=== PATIENT | male | born 1965 | race Two or more races ===

== ENCOUNTER 2024-06-05 07:42 | Day surgery (SDC) | payer MEDICAID ==
[2024-06-04 14:51] LABS: Urine Bacteria None Seen /hpf (None Seen); Urine WBC None Seen /hpf (0 - 3)
[2024-06-04 15:14] LABS: Basophils # (auto) 0 10 ^3/uL (0-0.2); Basophils % (auto) 0.8 % (0.0-2.0); Eosinophils # (auto) 0.1 10 ^3/uL (0-0.8); Eosinophils % (auto) 1.6 % (0.0-7.0); Hematocrit 42.5 % (41.0-53.0); Hemoglobin 14.2 g/dL (13.5-17.5); Lymphocytes # (auto) 1.8 10 ^3/uL (0.4-5.4); Lymphocytes % (auto) 31.3 % (10.0-50.0); Mean Corpuscular Hemoglobin 31.6 pg (28.0-32.0); Mean Corpuscular Hgb Conc. 33.5 g/dL (32.0-36.0); Mean Corpuscular Volume 94.4 fL (80.0-100.0); Monocytes # (auto) 0.4 10 ^3/uL (0-1.3); Monocytes % (auto) 6.1 % (0.0-12.0); Neutrophils # (auto) 3.5 10 ^3/uL (1.6-8.6); Neutrophils % (auto) 60.2 % (37.0-80.0); Nucleated Red Blood Cells % 0.1 %; Platelet Count (auto) 193 10^3/uL (140-450); Red Cell Distribution Width 13.7 % (11.8-14.3); White Blood Cell 5.7 10^3/uL (4.4-10.8)
[2024-06-04 15:15] LABS: Urine Blood Negative /uL (Negative); Urine Clarity Clear (Clear); Urine Color Light-Yellow (Yellow); Urine Protein, UAD Negative (Negative); Urine Specific Gravity 1.015 (1.001-1.035); Urine Squamous Epithelial Cell None Seen /hpf (<5); Urine Urobilinogen Normal (Negative)
[2024-06-04 15:38] LABS: INR 0.97 (0.9-1.15); Partial Thromboplastin Time 28.1 SEC (24.5-34.5); Prothrombin Time 10.3 sec (9.3-11.8)
[2024-06-04 15:43] LABS: Alanine Aminotransferase 28 U/L (7-40); Albumin 4.1 g/dL (3.2-4.8); Alkaline Phosphatase 69 U/L (46-116); Anion Gap 8 (5-15); Aspartate Aminotransferase 22 U/L (13-40); Blood Urea Nitrogen 15 mg/dL (9-23); Calcium 10.2 mg/dL (8.7-10.4); Carbon Dioxide 27 mmol/L (20-31); Potassium 3.8 mmol/L (3.5-5.1); Sodium 143 mmol/L (136-145)
[2024-06-04 15:44] LABS: Bilirubin, Total 0.8 mg/dL (0.2-1.0); Total Protein 6.5 g/dL (5.7-8.2)
[2024-06-04 15:57] LABS: Chloride 108 mmol/L (98-107); Glucose 123 mg/dL (74-106)
[~2024-06-05] VITALS: Ht 175.3 cm; Wt 83.9 kg
[2024-06-05] MEDS ORDERED: KETAMINE 50mg/ML 1ml syringe IV ONE (07:43)
[2024-06-05] MEDS ORDERED: ceFAZolin 2 GM/D5W100ml 100 ML IV ONE (09:04)
[2024-06-05] MEDS ORDERED: BUPIVACAINE 0.5% P/F INJ 10 ML VIAL ONE (10:33)
[2024-06-05] MEDS ORDERED: CELECOXIB 100 MG CAP ONE (10:39)
[2024-06-05] MEDS ORDERED: GABAPENTIN 300 MG CAP ONE (10:39)
[2024-06-05] MEDS ORDERED: ACETAMINOPHEN IV 100 ML IV ONE (10:39)
[2024-06-05] MEDS: GABAPENTIN 300 MG CAP PO ONE (10:45)
[2024-06-05] MEDS: ACETAMINOPHEN IV 1000 MG/100ML (10MG/ML) IV ONE (10:45)
[2024-06-05] MEDS: CELECOXIB 100 MG CAP PO ONE (10:45)
[2024-06-05] MEDS ORDERED: LIDOCAINE 2% (LOCAL ANESTH.) PF 5ml SDV ONE (10:46)
[2024-06-05] MEDS ORDERED: PROPOFOL 10 MG/ML 20 ML IV ONE (10:46)
[2024-06-05] MEDS ORDERED: GLYCOPYRROLATE 0.2 MG/ML 1ML VIAL ONE (10:46)
[2024-06-05] MEDS ORDERED: ONDANSETRON HCL 4 MG/2 ML VIAL ONE (10:46)
[2024-06-05] MEDS ORDERED: KETOROLAC TROMETH 30 MG/ML 1ML VIAL ONE (10:46)
[2024-06-05] MEDS ORDERED: DexAMETHasone SOD PHOS 10MG/1ML VIAL INJ ONE (10:46)
[2024-06-05] MEDS ORDERED: ePHEDrine SULFATE 50 MG/ML AMP ONE (11:16)
[2024-06-05 11:44] VITALS: PULSE 86; RESP 13; TEMP 98.7; O2SAT 99
--- NOTE | 2024-06-05 11:48 | DVHOP2 ---
Operative Report - 2 Report Details Date: 06/05/24 Preop Diagnosis: 1. Right foot bunion 2. Right foot tailors bunion 3. Right foot metatarsalgia 4. Right foot pain Postop Diagnosis: Right foot bunion right Right foot tailor's bunion Right foot metatarsalgia Surgeon: Narda Mendoza MD Anesthesiologist: See anesthesia Anesthesia: General Implant: 062 K-wire x2 Consent: The patient was informed of the risks and benefits of the procedure. These include but are not limited to complications of anesthesia, postoperative infection, incomplete relief of symptoms, recurrence of symptoms, damage to blood vessels, nerves and tendons, deep venous thrombosis, pulmonary embolism a nd possible need for repeat surgery in the future. Complications: None Estimated Blood Loss: Minimal Fluids: See anesthesia Findings: Consistent with the diagnosis Indications for Surgery: Worsening right foot pain Name of Procedure Performed 1. Right foot MIS bunionectomy (91038) 2. Right foot MIS tailors bunionectomy (09229) 3. Right foot second metatarsal Lina osteotomy (29577) Procedure Details Procedure Details: PRE-PROCEDURE INFORMATION: In the pre-op holding area, the extremity to be operated on was clearly marked and the patient verified correct laterality of the marking. The patient was transferred to the OR table and placed in a supine position. A timeout was performed in which identification of the correct patient, procedure, location, and materials was done. The right foot and leg were prepped and draped in normal sterile fashion. The foot and leg were exsanguinated and the thigh tourniquet was inflated to 250 mmHg. DESCRIPTION OF PROCEDURE: Attention was directed to the right 1st metatarsophalangeal joint where a stab incision was made at the neck of the 1st metatarsal. Care was taken to avoid damage the neurovascular and tendinous structures. Using intraoperative fluoroscopy and an MIS per, an osteotomy was then made at the neck of the 1st metatarsal. The metatarsal head was then shifted into position aligning the sesamoid bones over the fragment. Using a 6 2 K-wire, the wire was then driven down the shaft of the 1st metatarsal to hold the head in place until the osteotomy has healed. Fluoroscopy verified proper placement of hardware as well as correction of previous bunion deformity. Attention was directed to the right lateral fifth metatarsal head where a stab incision was made. This incision was deepened through blunt and sharp dissection. Care was taken to avoid damage to neurovascular structures throughout dissection. The incision was carried to the level of the fifth metatarsal head where on intraoperative fluoroscopy as well as preoperative x- rays, it was noted there was no significantly increased lateral deviation angle of the fifth metatarsal, but the lateral aspect of the fifth metatarsal head appeared to be prominent. This indicated that the patient would benefit from an ostectomy of the metatarsal head without osteotomy. Using an MIS bur, an osteotomy was made across the neck of the metatarsal head. Using a 0.62 K wire, the wire was then placed down the shaft of the 5th metatarsal holding the head in the appropriate position. It was noted on intraoperative fluoroscopy, there was significant reduction of deformity Attention was directed to the right 2nd metatarsal head where a stab incision was made. The incision was deepened through blunt and sharp dissection. Care was taken to avoid damage to neurovascular structures throughout dissection. Incision was carried to the level of the 2nd metatarsal head or on fluoroscopy a s well as preoperative x-rays, it was noted there was significant plantar flexion of the metatarsal head. Using an MIS bur, the an osteotomy was performed across the neck of the metatarsal head. The metatarsal head was then able to float. It was noted off intraoperative fluoroscopy, there was significant reduction deformity. All surgical wounds were irrigated copiously with saline and closed in layers with the aforementioned suture material. A dry sterile dressing was placed on the surgical extremity. The patient was placed in a _ POSTOPERATIVE INFORMATION: The patient tolerated the above noted procedure and anesthesia well and was transferred to the PACU with vital signs stable, and vascular status intact with capillary refill intact to all digits. Postoperative instructions reviewed in detail with the patient with written instructions provided. Patient will return to clinic in approximately 10-14 days for first postoperative visit. Patient has the number of the clinic and was instructed to call prior to that time should any problems, questions, or concerns arise. Condition Good Disposition Home NARDA MENDOZA DPM Jun 05, 2024 11:48
[2024-06-05] MEDS ORDERED: hydrALAZINE HCL 20 MG/ML VL IV PRN (12:00)
[2024-06-05] MEDS ORDERED: ePHEDrine SULFATE 50 MG/ML AMP IV PRN (12:00)
[2024-06-05] MEDS ORDERED: NALOXONE HCL 0.4 MG/ML VIAL IV PRN (12:00)
[2024-06-05] MEDS ORDERED: ONDANSETRON HCL 4 MG/2 ML VIAL IV PRN (12:00)
[2024-06-05] MEDS ORDERED: FLUMAZENIL 0.1 MG/ML INJ 10ML MDV IV PRN (12:00)
[2024-06-05] MEDS ORDERED: fentaNYL CITRATE 100 MCG/2 ML VL IV PRN (12:00)
[2024-06-05] MEDS ORDERED: oxyCODONE HCL 5MG TAB PO PRN (12:00)
[2024-06-05] MEDS ORDERED: HYDROmorphone HCL 2 MG/ML VL/or syr ONE (12:10)
[2024-06-05] MEDS: HYDROmorphone HCL 2 MG/ML VL/or syr IV PRN (12:14)
[2024-06-05 13:15] VITALS: BP 134/73; PULSE 60; RESP 16; O2SAT 99
== END 2024-06-05 13:30 | disposition home or self-care (01) ==
LOC: EDBD → SUR 07:42
PROVIDERS: ATTEND Podiatrist
DX: M21.621 Bunionette of right foot (principal); M21.611 Bunion of right foot; M77.41 Metatarsalgia, right foot; E66.3 Overweight; Z68.27 Body mass index [BMI] 27.0-27.9, adult
CPT/HCPCS: 28296; 28308; 36415; 80053; 81001; 85025; 85610; 85730; C1769; J1100; J1171; J1885; J2003; J2405; J2704; J3490; J0131

== ENCOUNTER 2024-06-15 11:42 | Emergency (ER) | payer MEDICAID ==
[~2024-06-15] VITALS: Ht 170.2 cm; Wt 63.3 kg
--- NOTE | 2024-06-15 12:55 | DVH ---
XY CHEST TWO VIEWS ROUTINE CLINICAL HISTORY: cough COMPARISON: None TECHNIQUE: Frontal and lateral view of the chest was obtained FINDINGS: Lines and Tubes: None Lungs: There is left lower lobe opacity. Pleura: No effusion. No pneumothorax. Cardiomediastinal contours: Unremarkable Bones: No acute osseous abnormality. IMPRESSION: 1. Left lower lobe pneumonia.
[2024-06-15] MEDS: ACETAMINOPHEN 325 MG TAB PO ONE (12:57)
[2024-06-15] MEDS: ONDANSETRON ODT 4 MG TAB PO ONE (12:57)
[2024-06-15 14:46] LABS: Basophils # (auto) 0.1 10 ^3/uL (0-0.2); Basophils % (auto) 1.2 % (0.0-2.0); Eosinophils # (auto) 0.6 10 ^3/uL (0-0.8); Eosinophils % (auto) 9.6 % (0.0-7.0); Hematocrit 42.3 % (41.0-53.0); Hemoglobin 14.1 g/dL (13.5-17.5); Lymphocytes # (auto) 1.4 10 ^3/uL (0.4-5.4); Lymphocytes % (auto) 22.5 % (10.0-50.0); Mean Corpuscular Hemoglobin 31.2 pg (28.0-32.0); Mean Corpuscular Hgb Conc. 33.4 g/dL (32.0-36.0); Mean Corpuscular Volume 93.3 fL (80.0-100.0); Monocytes # (auto) 0.7 10 ^3/uL (0-1.3); Monocytes % (auto) 11.7 % (0.0-12.0); Neutrophils # (auto) 3.5 10 ^3/uL (1.6-8.6); Platelet Count (auto) 350 10^3/uL (140-450); Red Blood Cells 4.53 10^6/uL (4.5-5.90); Red Cell Distribution Width 13.2 % (11.8-14.3); White Blood Cell 6.4 10^3/uL (4.4-10.8)
[2024-06-15 15:26] LABS: Chloride 103 mmol/L (98-107); Sodium 139 mmol/L (136-145)
[2024-06-15 15:27] LABS: Anion Gap 3 (5-15)
[2024-06-15 15:28] LABS: Calcium 10.2 mg/dL (8.7-10.4)
[2024-06-15 15:30] LABS: Carbon Dioxide 33 mmol/L (20-31); Potassium 5.1 mmol/L (3.5-5.1)
[2024-06-15 15:32] LABS: BUN/Creatinine Ratio 17.1 (10.0-20.0); Blood Urea Nitrogen 12 mg/dL (9-23); Glucose 101 mg/dL (74-106)
[2024-06-15] MEDS: AZITHROMYCIN 250 MG TAB PO ONE (15:44)
[2024-06-15] MEDS: CEFEPIME 2GM/50ML NS 50 ML IV ONE (15:52)
--- NOTE | 2024-06-15 15:56 | ED.PDOC ---
History of Present Illness HPI Comments 58M presents with 1 week of nonproductive cough. Patient reports tactile fevers, myalgias, arthralgias. Denies any nausea vomiting or diarrhea. Chief Complaint: Cough Time Seen by MD: 11:59 Reviewed Notes: Nurses Notes, Medications, Allergies Allergies: Coded Allergies: NO KNOWN ALLERGIES (Unverified , 06/04/24) Home Meds No Active Prescriptions or Reported Meds Information Source: Patient Mode of Arrival: Ambulatory Severity: Mild Timing: Days Duration: Since onset Past Medical History PAST MEDICAL HISTORY: Denies Surgical History: Denies all surgeries Family History Family History: Unknown Social History Smoker: Non-Smoker Alcohol: Denies ETOH Use Drugs: Denies Drug Use Lives In: Home Constitutional: denies: chills, diaphoresis, fatigue, fever, malaise, sweats, weakness, others EENTM: denies: blurred vision, double vision, ear bleeding, ear discharge, ear drainage, ear pain, ear ringing, eye pain, eye redness, hearing loss, mouth pain, mouth swelling, nasal discharge, nose bleeding, nose congestion, nose pain, photophobia, tearing, throat pain, throat swelling, voice changes, others Respiratory: reports: cough; denies: hemoptysis, orthopnea, SOB at rest, shortness of breath, SOB with excertion, stridor, wheezing, others Cardiovascular: denies: chest pain, dizzy spells, diaphoresis, Dyspnea on ex ertion, edema, irregular heart beat, left arm pain, lightheadedness, palpitations, PND, syncope, others Gastrointestinal: denies: abdomen distended, abdominal pain, blood streaked bowels, constipated, diarrhea, dysphagia, difficulty swallowing, hematemesis, melena, nausea, poor appetite, poor fluid intake, rectal bleeding, rectal pain, vomiting, others Genitourinary: denies: burning, dysuria, flank pain, frequency, hematuria, incontinence, penile discharge, penile sore, pain, testicle pain, testicle swelling, urgency, others Neurological: denies: dizziness, fainting, headache, left sided numbness, left sided weakness, numbness, paresthesia, pre-existing deficit, right sided numbness, right sided weakness, seizure, speech problems, tingling, tremors, weakness, others Musculoskeletal: denies: back pain, gout, joint pain, joint swelling, muscle pain, muscle stiffness, neck pain, others Integumetry: denies: bruises, change in color, change in hair/nails, dryness, laceration, lesions, lumps, rash, wounds, others Allergic/Immunocompromised: denies: Difficulty Healing, Frequent Infections, Hives, Itching, others Hematologic/Lymphatic: denies: anemia, blood clots, easy bleeding, easy bruising, swollen glands, others Endocrine: denies: excessive hunger, excessive sweating, excessive thirst, excessive urination, flushing, intolerance to cold, intolerance to heat, unexplained weight gain, unexplained weight loss, others Psychiatric: denies: anxiety, bipolar disorder, depression, hopeless, panic disorder, schizophrenia, sleepless, suicidal, others All Other Systems: Reviewed and Negative Physical Exam General Appearance: No Apparent Distress, Normal HEENT: Normal ENT Inspection, Pharynx Normal, TMs Normal Neck: Full Range of Motion, Non-Tender, Normal, Normal Inspection Respiratory: Chest Non-Tender, Lungs Clear, No Accessory Muscle Use, No Respiratory Distress, Normal Breath Sounds Cardiovascular: No Edema, No JVD, No Murmur, No Gallop, Normal Peripheral Pulses, Regular Rate/Rhythm Breast Exam: Deferred Gastrointestinal: No Organomegaly, Non Tender, No Pulsatile Mass, Normal Bowel Sounds, Soft Genitalia: Deferred Pelvic: Deferred Rectal: Deferred Extremities: No calf tenderness, Normal capillary refill, Normal inspection, Normal range of motion, Non-tender, No pedal edema Musculoskeletal : Apperance: Normal Neurologic: Alert, speech language assistant II-XII nml as Tested, No Motor Deficits, Normal Affect, Normal Mood, No Sensory Deficits Cerebellar Function: NOT DONE Reflexes: NOT DONE Skin: Dry, Normal Color, Warm Lymphatic: No Adenopathy Was a procedure done? Was a procedure done?: No Differential Dx Considerations may include: Viral syndrome, pneumonia X-Ray, Labs, Meds, VS Vital Signs Date Time Temp Pulse Resp B/P (MAP) Pulse Ox O2 Delivery O2 Flow Rate FiO2 06/15/24 15:54 98.5 82 17 116/68 (84) 95 98.5 06/15/24 15:30 98.5 06/15/24 13:03 79 16 99 Room Air 06/15/24 13:03 98.6 79 18 109/75 (86) 79 98.6 06/15/24 12:57 98.6 06/15/24 12:00 98.7 74 20 104/82 (89) 94 Lab Test 06/15/24 14:00 Range/Units White Blood Count 6.4 4.4-10.8 10^3/uL Red Blood Count 4.53 4.5-5.90 10^6/uL Hemoglobin 14.1 13.5-17.5 g/dL Hematocrit 42.3 41.0-53.0 % Mean Corpuscular Volume 93.3 80.0-100.0 fL Mean Corpuscular Hemoglobin 31.2 28.0-32.0 pg Mean Corpuscular Hemoglobin Concent 33.4 32.0-36.0 g/dL Red Cell Distribution Width 13.2 11.8-14.3 % Platelet Count 350 140-450 10^3/uL Mean Platelet Volume 9.3 6.9-10.8 fL Neutrophils (%) (Auto) 55.0 37.0-80.0 % Lymphocytes (%) (Auto) 22.5 10.0-50.0 % Monocytes (%) (Auto) 11.7 0.0-12.0 % Eosinophils (%) (Auto) 9.6 H 0.0-7.0 % Basophils (%) (Auto) 1.2 0.0-2.0 % Neutrophils # (Auto) 3.5 1.6-8.6 10 ^3/uL Lymphocytes # (Auto) 1.4 0.4-5.4 10 ^3/uL Monocytes # (Auto) 0.7 0-1.3 10 ^3/uL Eosinophils # (Auto) 0.6 0-0.8 10 ^3/uL Basophils # (Auto) 0.1 0-0.2 10 ^3/uL Nucleated Red Blood Cells 0.0 % Sodium Level 139 136-145 mmol/L Potassium Level 5.1 3.5-5.1 mmol/L Chloride Level 103 98-107 mmol/L Carbon Dioxide Level 33 H 20-31 mmol/L Anion Gap 3 L 5-15 Blood Urea Nitrogen 12 9-23 mg/dL Creatinine 0.70 0.700-1.30 mg/dL Glomerular Filtration Rate Calc 107 >90 mL/min BUN/Creatinine Ratio 17.1 10.0-20.0 Serum Glucose 101 74-106 mg/dL Lactic Acid Level 1.2 0.4-2.0 mmol/L Calcium Level 10.2 8.7-10.4 mg/dL Current Medications Medications (Trade) Dose Ordered Sig/Young Route Start Time Stop Time Status Last Admin Acetaminophen (Tylenol Tablet) 650 mg ONCE ONCE PO 06/15/24 12:15 06/15/24 12:16 DC 06/15/24 12:57 Ondansetron HCl (Zofran Po) 4 mg ONCE ONCE PO 06/15/24 12:15 06/15/24 12:16 DC 06/15/24 12:57 Azithromycin (Zithromax Tablet) 500 mg ONCE ONCE PO 06/15/24 13:30 06/15/24 13:59 DC 06/15/24 15:44 Cefepime HCl 50 ml @ 12.5 mls/hr ONCE ONCE IV 06/15/24 13:30 06/15/24 17:29 06/15/24 15:52 Time of 1ST Reevaluation: 14:00 Reevaluation 1ST: Unchanged Patient Education/Counseling: Diagnosis, Treatment Family Education/Counseling: No Family Present Departure 1 Departure Time of Disposition: 16:09 (Patient has a pneumonia by the vitals otherwise normal and labs are benign. We will discharge patient home with the outpatient antibiotics and follow up) Impression: Primary Impression: Left lower lobe pneumonia Qualified Codes: J18.9 - Pneumonia, unspecified organism Disposition: 01 HOME / SELF CARE / HOMELESS Condition: Stable Additional Instructions: You have a pneumonia. This is an infection in your lung. You were prescribed antibiotics. Please take as directed. If your symptoms worsen, or you have any other concerns then please return to the ER. e-Prescriptions Azithromycin (ZITHROMAX TABLET) 250 Mg Tb 250 MG PO DAILY for 4 Days, #4 TAB Prov: VALORIE CHUN MD 06/15/24 Cefdinir (Cefdinir) 300 Mg Cap 1 CAP PO BID for 7 Days, #14 CAP Prov: VALORIE CHUN MD 06/15/24 Discharged With: Self Critical Care Note Critical Care Time?: No Stability Stability form required: No Heart Score Heart Score: Heart Score Response (Comments) Value History N/A 0 EKG N/A 0 Age N/A 0 Risk Factors N/A 0 Troponin N/A 0 Total 0 I personally scribed for VALORIE CHUN MD ([email or web address]) on 06/15/24 at 15:56. Electronically submitted by Nori Monahan ([email or web address]). VALORIE CHUN MD Jun 15, 2024 15:56
[2024-06-15] MEDS ORDERED: CEFD300C2 PO (16:11)
[2024-06-15] MEDS ORDERED: AZIT-185 PO (16:11)
[2024-06-15 16:58] VITALS: BP 98/68; PULSE 69; RESP 20; TEMP 97.6; O2SAT 96
== END 2024-06-15 17:01 | disposition home or self-care (01) ==
LOC: ER 11:42
DX: J18.1 Lobar pneumonia, unspecified organism (principal)
CPT/HCPCS: 36415; 71046; 80048; 83605; 85025; 87040; 96365; 99285; J0692; Q0162